=== PATIENT | male | born 1990 | race Caucasian/White ===

== ENCOUNTER 2017-01-29 14:21 | Emergency (ER) | payer OTHER ==
--- NOTE | ~2017-01-29 | CR72 ---
[facility]. [facility] A Service of [facility] & [facility] RADIOLOGY TEXT RESULTS PATIENT: RAYA MCELROY LOCATION: SED : 86 UNIT #: [id number] AGE: [address]: Kaitlin Alex SEX: M ORDER DR: [id number] [address] [address] [id number] E MR#: [id number] Acc #: [id number] NAME: RAYA MCELROY. : 1990 SEX: M STUDY DATE/TIME: 01/29/2017 14:42 UNIT: SED ROOM: STUDY DESCRIPTION: CR Chest Single View Portable Attending Physician: Kaitlin Alex Pa-C Ordering Physician: Manohar Parmar M.D. Primary Care Physician: Cesar Brandon M.D. MEDICAL IMAGING REPORT This report is preliminary unless electronic signature is present. EXAM Portable chest HISTORY Cough and shortness of air for 1 week. FINDINGS A single AP portable view of the chest shows both lungs to be clear. The heart is normal in size. The mediastinal contour is normal. No significant bone abnormalities are seen. IMPRESSION Normal portable chest. Dictated by... Jd Salvador M.D. THIS IS AN ELECTRONICALLY VERIFIED REPORT Jd Salvador M.D. at 01/30/2017 3:29 PM DFL/psc TD: 01/29/2017 23:47 JOB #: [id number] MEDICAL IMAGING REPORT
[2017-01-29 13:38] LABS: INFLUENZA A NEG (NEG); INFLUENZA B NEG (NEG)
[~2017-01-29 14:21] MED LIST: ADVAIR 1001 DISK W/D PO; ADVAIR 2501 DISK W/D PO; ALBUTEROL0.63 MG/3 INH; ALBUTEROL17 G1; ALBUTEROL17 GM INH; AMOXICILLIN500 M1 PO; COMBIVENT MININEB; FLEXERIL10 MG PO; IBUPROFEN800 MG PO; INHALER; KEFLEX PO; KEFLEX500 MG PO; LORTAB 5/500 TA1 TA1 PO; NO MEDICATIONS; PREDNISONE PO; SINGULAIR PO; TYLENOL #3 PO; VOLTAREN75 MG PO; ZITHROMAX PO
[2017-01-31] MEDS ORDERED: AMOXICILLIN500 M1 PO (09:26)
== END 2017-01-29 15:30 | disposition home or self-care (01) ==
LOC: SED 14:21
PROVIDERS: Physician Assistant
DX: J45.901 Unspecified asthma with (acute) exacerbation (principal); F17.200 Nicotine dependence, unspecified, uncomplicated
CPT/HCPCS: 71010; 87651; 87804; 94640; 99283